=== PATIENT | female | born 1965 | race Caucasian/White ===

== ENCOUNTER 2023-08-18 20:57 | Emergency (ER) | payer MEDICAID, MEDICARE, OTHER ==
[~2023-08-18] VITALS: Ht 172.7 cm; Wt 90.0 kg
[2023-08-18] MEDS: SODIUM CHLORIDE 0.9% 1,000 ML IVB ONE (06:45)
[~2023-08-18 20:57] MED LIST: ALBU18 IN
[2023-08-18 21:52] LABS: Basophils # (auto) 0.1 10 ^3/uL (0-0.2); Basophils % (auto) 0.6 % (0.0-2.0); Eosinophils # (auto) 0.3 10 ^3/uL (0-0.8); Eosinophils % (auto) 1.9 % (0.0-7.0); Hematocrit 41.8 % (36.0-46.0); Hemoglobin 13.9 g/dL (12.2-16.2); Lymphocytes # (auto) 1.3 10 ^3/uL (0.4-5.4); Mean Corpuscular Hemoglobin 30.5 pg (28.0-32.0); Mean Corpuscular Hgb Conc. 33.3 g/dL (32.0-36.0); Mean Corpuscular Volume 91.6 fL (80.0-100.0); Monocytes # (auto) 1.3 10 ^3/uL (0-1.3); Neutrophils # (auto) 11.1 10 ^3/uL (1.6-8.6); Neutrophils % (auto) 79.5 % (37.0-80.0); Red Blood Cells 4.56 10^6/uL (4.0-5.20); Red Cell Distribution Width 13.7 % (11.8-14.3)
[2023-08-18 22:09] LABS: Alanine Aminotransferase 28 U/L (7-40); Albumin 3.6 g/dL (3.2-4.8); Alkaline Phosphatase 112 U/L (46-116); Anion Gap 5 (5-15); Aspartate Aminotransferase 24 U/L (13-40); BUN/Creatinine Ratio 20.5 (10.0-20.0); Bilirubin, Total 0.4 mg/dL (0.2-1.0); Blood Urea Nitrogen 17 mg/dL (9-23); Carbon Dioxide 27 mmol/L (20-30); Chloride 106 mmol/L (98-107); Glucose 115 mg/dL (74-106); Potassium 4.3 mmol/L (3.5-5.1); Sodium 138 mmol/L (136-145); Total Protein 5.9 g/dL (5.7-8.2)
[2023-08-18 22:25] LABS: Blood Alcohol < 3.0 mg/dL (<10)
[2023-08-19] MEDS: AZITHROMYCIN 500MG/ 250ML 250 ML IV ONE (04:30)
[2023-08-19] MEDS ORDERED: HYDROcodone-ACET 5/325MG TAB PO PRN (05:30)
[2023-08-19] MEDS ORDERED: ACETAMINOPHEN 325 MG TAB PO PRN (05:30)
[2023-08-19] MEDS ORDERED: ALBUTEROL SULF 2.5 MG/0.5ML(0.5%) NEB SOLN NEB PRN (05:30)
[2023-08-19] MEDS ORDERED: NITROGLYCERIN 0.4 MG SL TAB SL PRN (05:30)
[2023-08-19] MEDS ORDERED: MORPHINE SULFATE 4 MG/ML SYR/VIAL IV PRN (05:30)
[2023-08-19] MEDS ORDERED: MORPHINE SULFATE INJ 2 MG/ml SYRG IV PRN ×2 (05:30)
[2023-08-19] MEDS ORDERED: ONDANSETRON HCL 4 MG/2 ML VIAL IV PRN (05:30)
[2023-08-19 05:50] VITALS: BP 144/93; PULSE 61; RESP 18; TEMP 97.3; O2SAT 97
[2023-08-19] MEDS ORDERED: DOXYCYCLINE 100MG/250ML 250 ML IV SCH (06:00)
[2023-08-19] MEDS: ONDANSETRON HCL 4 MG/2 ML VIAL IV ONE ×3 (06:43→12:13)
[2023-08-19] MEDS: MORPHINE SULFATE 4 MG/ML SYR/VIAL IV ONE (06:43)
[2023-08-19] MEDS: cefTRIAXone 1GM/50ML D5W 50 ML IV ONE (06:45)
[2023-08-19 08:00] VITALS: PULSE 85; RESP 12; TEMP 97.7; O2SAT 96
[2023-08-19] MEDS: MORPHINE SULFATE INJ 2 MG/ml SYRG IV ONE ×2 (08:45→12:35)
[2023-08-19] MEDS ORDERED: ENOXAPARIN SOD 40 MG/0.4 ML SYRINGE SC SCH (10:00)
[2023-08-19 12:57] VITALS: O2SAT 96
[2023-08-19 13:00] VITALS: BP 136/96; PULSE 89; RESP 22
[2023-08-20] MEDS ORDERED: cefTRIAXone 1GM/50ML D5W 50 ML IV SCH (09:00)
== END 2023-08-19 12:59 | disposition short-term general hospital (02) ==
LOC: ER 20:57 → EDBD 20:57 → TELE 08-19 05:31 → UNDOADMIN 08-19 05:31 → ER 08-19 12:59
DX: S82.141A Displaced bicondylar fracture of right tibia, initial encounter for closed fracture (principal); J18.9 Pneumonia, unspecified organism; S89.91XA Unspecified injury of right lower leg, initial encounter; J44.9 Chronic obstructive pulmonary disease, unspecified; R51.9 Headache, unspecified; Z79.899 Other long term (current) drug therapy; Z91.02 Food additives allergy status; W18.09XA Striking against other object with subsequent fall, initial encounter; Y93.89 Activity, other specified; Y92.098 Other place in other non-institutional residence as the place of occurrence of the external cause; Y99.8 Other external cause status
CPT/HCPCS: 29515; 36415; 70450; 71045; 73590; 73700; 80053; 80320; 83605; 83735; 85025; 87040; 93971; 96365; 96366; 96368; 96375; 96376; 99285; J0456; J0696; J2270; J2405; J7030